=== PATIENT | female | born 1955 | race Caucasian/White ===

== ENCOUNTER 2017-11-14 12:05 | Emergency (ER) | payer OTHER ==
[~2017-11-14] VITALS: Ht 185.4 cm; Wt 77.1 kg
--- NOTE | 2017-11-14 12:35 | ED ANKLE/FOOT INJURY COMPLAINT ---
History of Present Illness General Chief Complaint: Foot or Ankle Injury Stated Complaint: S/P FALL L ANKLE PAIN Source: patient Exam Limitations: no limitations Vital Signs & Intake/Output Vital Signs & Intake/Output Vital Signs Date Time Temp Pulse Resp B/P B/P Pulse O2 O2 Flow FiO2 Mean Ox Delivery Rate 11/14 1410 97.7 64 19 132/59 97 Room Air Room Air 11/14 1225 Room Air 11/14 1210 98.4 89 18 126/58 98 Room Air Allergies Coded Allergies: No Known Allergies (11/14/17) Reconcile Medications Oxycodone HCl/Acetaminophen (Percocet 5-325 MG Tablet) 5 MG-325 MG TABLET 1-2 TAB PO Q6P PRN PAIN Triage Note: 62 YO FEMALE TO [facility] FOR EVAL OF L ANKLE PAIN S/P TRIP AND FALL DOWN THE STAIRS THIS AM. DENIES HEADSTRIKE, DENIES LOC. L ANKLE NOTED WITH SWELLING. TOOK 600MG MOTRIN AROUND 0600 TODAY WITH SOME RELIEF. Triage Nurses Notes Reviewed? yes Occurred: this morning Duration: getting worse Timing: no prior history Severity Numbers: 10 (only when standing) Pain/Injury Location: Left: Ankle. Method of Injury: fall Modifying Factors: Improves With: rest. Worsens With: movement. Associated Symptoms: swelling, redness HPI: 62-year-old female presented to the emergency department reporting at about 530 this morning she fell down several stairs and twisted her left ankle. She denies head trauma or loss of consciousness. She states that her ankle began to swell and pain is 10 out of 10 when stepping on her foot. Without stepping on her foot she only reports minimal pain. Patient took Advil soon after the trauma, denies any need for medication at this time. History significant only for high blood pressure. No blood thinners or other chronic medical conditions. Past History Travel History Traveled to [place] past 21 day No Medical History Any Pertinent Medical History? 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 No Review of Systems Review of Systems Constitutional: Reports: see HPI. EENTM: Reports: no symptoms. Respiratory: Reports: no symptoms. Cardiovascular: Reports: no symptoms. GI: Reports: no symptoms. Genitourinary: Reports: no symptoms. Musculoskeletal: Reports: see HPI. Skin: Reports: see HPI. Neurological/Psychological: Reports: no symptoms. Hematologic/Endocrine: Reports: no symptoms. Immunologic/Allergic: Reports: no symptoms. All Other Systems: Reviewed and Negative Physical Exam Physical Exam General Appearance: well developed/nourished, no apparent distress, alert, awake , comfortable Head: atraumatic, normal appearance Eyes: Bilateral: normal appearance, EOMI. Ears, Nose, Throat: hearing grossly normal Neck: normal inspection, full range of motion Cardiovascular/Respiratory: no respiratory distress Back: normal range of motion Leg/Knee/Thigh Left: normal range of motion, normal inspection Leg/Knee/Thigh Right: normal range of motion, normal inspection Ankle Left: limited rom, particularly flexion and extension, significant swelling particularly on left lateral ankle. no ecchymosis. tenderness to palpation medial to the ankle. skin warm, pedal pulse in tact, sensations in tact Ankle Right: normal inspection, normal range of motion Foot Left: normal inspection Foot Right: normal inspection, normal range of motion Neuro/Vascular: normal sensation Tendon: normal tendon function Psychiatric: awake, alert, oriented x 3 Skin: intact, normal color, warm/dry Progress Differential Diagnosis: fracture, dislocation, sprain, contusion Plan of Care: Orders Procedure Date/time Status XRY-FOOT COMPLETE, LEFT 11/14 1345 Active 62-year-old female presented to the emergency department reporting injury to her left lateral ankle after a fall. No head trauma or loss of consciousness. Declined medication for pain or anti-inflammatory in this ED. X-ray ankle/foot revealed fracture of lateral mal and fracture of 5th metatarsal. Posterior L leg splint placed, patient tolerated well. Discussed setting patient up with crutches but she declined stating she has them at home and would prefer to use those. She is advised to keep elevated and keep non-weight bearing. She was stable at time of discharge. Take ibuprofen/tylenol as needed and take percocet as needed for pain. She is advised to follow up with ortho tomorrow morning. Diagnostic Imaging: Viewed by Me: Radiology Read. Discussed w/RAD: Radiology Read. Radiology Impression: PATIENT: KAYLEIGH OBANDO PRESENT AGE: 62 PATIENT ACCOUNT NO: [id number] : 57 LOCATION: [facility] ORDERING PHYSICIAN: Randal Guzman MD SERVICE DATE: 11/14/172 EXAM TYPE: RAD - XRY-ANKLE 3 OR MORE VIEWS L EXAMINATION: XR ANKLE, LEFT CLINICAL INFORMATION: Ankle injury COMPARISON: None TECHNIQUE: AP, lateral, and mortise views of the left ankle. FINDINGS: Moderate soft tissue swelling is seen anteriorly and laterally. The ankle mortise, medial and posterior malleoli are normal in appearance. A transverse fracture is seen at the distal aspect of the lateral malleolus with minimal displacement. Additionally, an oblique fracture is seen involving the shaft of the fifth metatarsal bone, incompletely evaluated. IMPRESSION: 1. Minimally displaced fracture involving the distal aspect of the lateral malleolus with overlying soft tissue swelling. 2. Acute oblique fracture of the fifth metatarsal bone, recommend foot radiographs for further evaluation. DICTATED BY: Zbigniew Owens MD DATE/TIME DICTATED:11/14/171324 CHAPLAINCY:MATT DATE/TIME TRANSCRIBED:11/14/171324 CONFIDENTIAL, DO NOT COPY WITHOUT APPROPRIATE AUTHORIZATION. <Electronically signed in Other Vendor System> SIGNED BY: Zbigniew Owens MD 11/14/17 1332, PATIENT: KAYLEIGH OBANDO PRESENT AGE: 62 PATIENT ACCOUNT NO: [id number] : 57 LOCATION: [facility] ORDERING PHYSICIAN: Randal Guzman MD SERVICE DATE: 11/14/17 EXAM TYPE: RAD - XRY-FOOT COMPLETE, LEFT EXAMINATION: XR FOOT, LEFT CLINICAL INFORMATION: Fracture. COMPARISON: Left ankle films dated 11/14/2017. TECHNIQUE: AP, lateral, and oblique views of the left foot. FINDINGS: Diffuse osteopenia. Spiral mildly comminuted mid and distal fifth metatarsal shaft fracture is seen with minimal one cortex width of medial and dorsal displacement seen. Mild overlying soft tissue swelling is seen. The distal fibular fracture and overlying soft tissue swelling are seen, less well visualized than the dedicated ankle films. Mild degenerative changes as seen in the interphalangeal joints of all digits with flexion deformities of the second through fifth toes seen. Remainder of bony structures is intact. IMPRESSION: 1. Spiral minimally displaced fracture of the mid and distal fifth metatarsal shaft. 2. Distal fibular fracture and overlying soft tissue swelling less well visualized than on dedicated ankle films. DICTATED BY: Jenn Ruiz MD DATE/ TIME DICTATED:11/14/171405 CHAPLAINCY:MATT DATE/TIME TRANSCRIBED: 11/14/171405 CONFIDENTIAL, DO NOT COPY WITHOUT APPROPRIATE AUTHORIZATION. < Electronically signed in Other Vendor System> SIGNED BY: Jenn Ruiz MD 11/14/17 1415 Departure Departure Disposition: HOME OR SELF CARE Condition: Stable Clinical Impression Primary Impression: Fracture of metatarsal bone of left foot Qualifiers: Encounter type: initial encounter Metatarsal bone: fifth Fracture type: closed Fracture alignment: nondisplaced Qualified Code: S92.355A - Nondisplaced fracture of fifth metatarsal bone, left foot, initial encounter for closed fracture Secondary Impressions: Fractured lateral malleolus Qualifiers: Encounter type: initial encounter Fracture type: closed Fracture alignment: nondisplaced Laterality: left Qualified Code: S82.65XA - Nondisplaced fracture of lateral malleolus of left fibula, initial encounter for closed fracture Referrals: Nathaly PACHECO,Nelia Coleman (PCP/Family) Additional Instructions: Keep ankle immobilized. Rest and ice to the area. Follow-up with your primary care provider. Follow-up with orthopedic if any continuing symptoms. Return to the emergency department new or worsening symptoms. Departure Forms: Customer Survey General Discharge Information Prescriptions: Current Visit Scripts Oxycodone HCl/Acetaminophen (Percocet 5-325 MG Tablet) 1-2 TAB PO Q6P PRN PAIN #8 TAB Procedures Splinting Location: L LEG SPLINT Manual Alignment Performed: Yes Hand-Made Type: orthoglass Splint: posterior walking Splint Applied By: splint applied by me Pre-Proc Neuro Vasc Exam: normal Post-Proc Neuro Vasc Exam: normal Progress: PATIENT TOLERATED WELL.
--- NOTE | 2017-11-14 13:32 | RADIOLOGY REPORT ---
EXAMINATION: XR ANKLE, LEFT CLINICAL INFORMATION: Ankle injury COMPARISON: None TECHNIQUE: AP, lateral, and mortise views of the left ankle. FINDINGS: Moderate soft tissue swelling is seen anteriorly and laterally. The ankle mortise, medial and posterior malleoli are normal in appearance. A transverse fracture is seen at the distal aspect of the lateral malleolus with minimal displacement. Additionally, an oblique fracture is seen involving the shaft of the fifth metatarsal bone, incompletely evaluated. IMPRESSION: 1. Minimally displaced fracture involving the distal aspect of the lateral malleolus with overlying soft tissue swelling. 2. Acute oblique fracture of the fifth metatarsal bone, recommend foot radiographs for further evaluation.
--- NOTE | 2017-11-14 14:15 | RADIOLOGY REPORT ---
EXAMINATION: XR FOOT, LEFT CLINICAL INFORMATION: Fracture. COMPARISON: Left ankle films dated 11/14/2017. TECHNIQUE: AP, lateral, and oblique views of the left foot. FINDINGS: Diffuse osteopenia. Spiral mildly comminuted mid and distal fifth metatarsal shaft fracture is seen with minimal one cortex width of medial and dorsal displacement seen. Mild overlying soft tissue swelling is seen. The distal fibular fracture and overlying soft tissue swelling are seen, less well visualized than the dedicated ankle films. Mild degenerative changes as seen in the interphalangeal joints of all digits with flexion deformities of the second through fifth toes seen. Remainder of bony structures is intact. IMPRESSION: 1. Spiral minimally displaced fracture of the mid and distal fifth metatarsal shaft. 2. Distal fibular fracture and overlying soft tissue swelling less well visualized than on dedicated ankle films.
[2017-11-14] MEDS ORDERED: PERCOCET 5-3251 EACH PO (14:58)
[2017-11-14 15:38] VITALS: BP 130/70
== END 2017-11-14 15:38 ==
LOC: ERH 12:05
DX: S92.352A Displaced fracture of fifth metatarsal bone, left foot, initial encounter for closed fracture (principal); S82.62XA Displaced fracture of lateral malleolus of left fibula, initial encounter for closed fracture; W10.9XXA Fall (on) (from) unspecified stairs and steps, initial encounter; Y92.9 Unspecified place or not applicable; Y93.9 Activity, unspecified; I10 Essential (primary) hypertension; E78.5 Hyperlipidemia, unspecified
CPT/HCPCS: 73610-LT; 73630-LT